=== PATIENT | female | born 1980 | race African-American/Black ===

== ENCOUNTER 2021-12-03 13:15 | Emergency (ER) | payer OTHER ==
[~2021-12-03] VITALS: Ht 160 cm; Wt 73.0 kg
[2021-12-03] MEDS ORDERED: IBUPROFEN 600MG TABLET PO ONE (14:00)
[2021-12-03 14:40] VITALS: BP 128/80
[2021-12-03] MEDS ORDERED: ONDANSETRON 4MG ODT PO ONE (14:45)
== END 2021-12-03 16:32 | disposition home or self-care (01) ==
LOC: ER 14:02
DX: R51.9 Headache, unspecified (principal); R00.2 Palpitations; R03.0 Elevated blood-pressure reading, without diagnosis of hypertension
CPT/HCPCS: 81025; 93005; 99283; Q0162

== ENCOUNTER 2024-01-22 20:06 | Emergency (ER) | payer OTHER ==
[~2024-01-22] VITALS: Ht 167.6 cm; Wt 78.0 kg
[2024-01-22 20:12] VITALS: TEMP 97.8; O2SAT 100
[2024-01-22 20:42] LABS: BASOPHILS % 0.2 % (0.0-2.0); EOSINOPHILS % 0.4 % (0.0-5.0); HEMATOCRIT. 37.7 % (36.0-48.0); HEMOGLOBIN. 12.4 g/dL (12.0-16.0); LYMPHOCYTES % 17.8 % (20.0-50.0); MEAN CORPUSCULAR HGB CONC 32.8 g/dL (31.0-37.0); MEAN CORPUSCULAR VOLUME 91.5 fL (81.0-99.0); MEAN PLATELET VOLUME 11.4 fl (7.4-10.4); MONOCYTES % 4.2 % (2.0-8.0); NEUTROPHILS % 77.4 % (40.0-76.0); PLATELET 203 x1000/uL (130-400); RED BLOOD CELL COUNT 4.12 mill/uL (4.2-5.4); RED CELL DISTRIBUTION WIDTH 14.4 % (11.6-14.6); WHITE BLOOD COUNT 10.7 x1000/uL (4.5-11.0)
[2024-01-22 20:52] LABS: INR 0.9; PROTHROMBIN TIME 10.3 sec (9.6-11.0)
[2024-01-22] MEDS: ONDANSETRON HCL 4MG/2ML INJ IV STA (20:52)
[2024-01-22] MEDS: IBUPROFEN 600MG TABLET PO STA (20:52)
[2024-01-22 20:56] LABS: CARBON DIOXIDE 21 mEq/L (21-32); CHLORIDE 105 mEq/L (98-107); SODIUM 139 mEq/L (136-145)
[2024-01-22 20:57] LABS: CALCIUM 9.6 mg/dL (8.7-10.4)
[2024-01-22 21:01] LABS: CREATININE 0.7 mg/dL (0.6-1.0)
[2024-01-22 21:02] LABS: GLUCOSE 138 mg/dL (70-105); HCG SCREEN NEGATIVE; UREA NITROGEN BLOOD 10 mg/dL (9-23)
[2024-01-22 21:03] LABS: ALANINE AMINOTRANSFERASE 25 IU/L (10-49); ASPARTATE AMINOTRANSFERASE 28 IU/L (<34)
[2024-01-22 21:04] LABS: ALBUMIN 4.8 g/dL (3.2-4.8); BILIRUBIN TOTAL 0.5 mg/dL (0.1-1.0); PROTEIN TOTAL 7.3 g/dL (6.0-8.3)
[2024-01-22 21:07] LABS: BILIRUBIN DIRECT < 0.1 mg/dL (<=3.0)
[2024-01-22] MEDS: METOCLOPRAMIDE HCL 10MG/2ML VIAL IV ONE (23:15)
[2024-01-22] MEDS: ACETAMINOPHEN 1000MG/100ML 100 ML IV ONE (23:15)
[2024-01-23] MEDS: SODIUM CHLORIDE 0.9% 1,000 ML IV ONE (00:32)
[2024-01-23] MEDS ORDERED: ACET-2708 MT (00:55)
[2024-01-23] MEDS ORDERED: ONDA4TAB50 MT (00:55)
[2024-01-23 01:29] VITALS: BP 132/80; PULSE 79; RESP 17; O2SAT 100
== END 2024-01-23 01:30 | disposition home or self-care (01) ==
LOC: ER 20:06
DX: G43.909 Migraine, unspecified, not intractable, without status migrainosus (principal); R11.2 Nausea with vomiting, unspecified
CPT/HCPCS: 99285; 96365; 70450; 76705; 96375; 80076; 80048; 84703; 83690; 85025; 85610; 36415; 96361; J2765; J2405; J7030; J0131

== ENCOUNTER 2024-02-25 01:33 | Emergency (ER) | payer OTHER, MEDICAID ==
[~2024-02-25] VITALS: Ht 165.1 cm; Wt 73.0 kg
[~2024-02-25 01:33] MED LIST: ACET-2708 MT; ONDA4TAB50 MT
[2024-02-25 01:38] VITALS: BP 140/88; PULSE 90; RESP 18; TEMP 97.8; O2SAT 97
[2024-02-25] MEDS ORDERED: ACETAMINOPHEN 325MG TABLET PO ONE (02:00)
[2024-02-25] MEDS ORDERED: MECLIZINE 25MG TABLET PO ONE (02:00)
[2024-02-25] MEDS ORDERED: METOCLOPRAMIDE HCL 10MG/2ML VIAL IV ONE (02:00)
[2024-02-25] MEDS ORDERED: LACTATED RINGERS 1,000 ML IV SCH (02:00)
== END 2024-02-25 02:19 ==
LOC: ER 01:33
DX: R51.9 Headache, unspecified (principal); R42 Dizziness and giddiness; R11.2 Nausea with vomiting, unspecified
CPT/HCPCS: 99283

== ENCOUNTER 2024-03-13 04:38 | Emergency (ER) | payer OTHER, MEDICAID ==
[~2024-03-13] VITALS: Ht 167.6 cm; Wt 82.0 kg
[2024-03-13 04:42] VITALS: BP 140/76; PULSE 93; RESP 18; TEMP 97.9; O2SAT 100
[2024-03-13] MEDS ORDERED: ONDANSETRON HCL 4MG TABLET PO ONE (05:00)
== END 2024-03-13 05:20 | disposition left against medical advice (07) ==
LOC: ER 04:38
DX: R11.2 Nausea with vomiting, unspecified (principal)
CPT/HCPCS: 99283